=== PATIENT | male | born 1960 | race Caucasian/White ===

== ENCOUNTER → 2016-03-23 | Day surgery (SDC) | payer OTHER ==
[~2016-03-23] VITALS: Ht 177.8 cm; Wt 95.3 kg
--- NOTE | 2016-03-23 09:37 | Operative Report ---
Operative/Inv Procedure Report Surgery Date: 03/23/16 Name of Procedure: Bronchoscopy with bronchoalveolar lavage Pre-Operative Diagnosis: Left lung pulmonary infiltrates Post-Operative Diagnosis: Same Estimated Blood Loss: none Surgeon/Radiation / Chemistry Technician: Ronal Edwards MD Anesthesia: general endotracheal tube Operative/Procedure Note Note: After placement of monitoring lines and induction of general anesthesia fiberoptic bronchoscopy was performed through the endotracheal tube. The endobronchial anatomy was normal. There were no endobronchial lesions noted and no obstructions. The bronchoscope was then wedged into the first left upper lobe and then the left lower lobe. 20 mL of saline was passed and each wedge position and the return fluid was sent for cytology and further fluid analysis. The patient tolerated procedure well and the procedure continued as a mediastinoscopy. CC: NAVI PETERS,RONAL
--- NOTE | 2016-03-23 09:39 | Operative Report ---
Operative/Inv Procedure Report Surgery Date: 03/23/16 Name of Procedure: Mediastinoscopy Pre-Operative Diagnosis: Mediastinal lymphadenopathy Post-Operative Diagnosis: Same Estimated Blood Loss: scant Surgeon/Winter Intern: MARGARITO PETERS,LUISANA Fuentes JR Anesthesia: general endotracheal tube Operative/Procedure Note Note: The procedure continued after completion the bronchoscopy. The patient's neck and chest were prepped and draped in sterile fashion. A small incision was made above the sternal notch and carried down to pretracheal fascia. The posterior mediastinum was entered easily with blunt dissection and the mediastinoscope was introduced. Given the appearance of the tissues and a fair amount of mediastinal fat dissection was somewhat tedious but the pathological lymph nodes in the right paratracheal area were encountered directly. Needle aspiration showed nonvascular structure. Multiple specimens were taken and sent for permanent histology along with flow cytometry. Hemostasis was achieved with electrocautery and with some Surgicel packing that was left behind because of some bleeding from the biopsy lymph nodes. The wound was closed in layers with deep Vicryl suture followed by running Vicryl subcuticular suture. The patient tolerated the procedure well and was brought to recovery room awake and extubated in stable condition. CC: CLYDE MCELROY MD
--- NOTE | 2016-03-23 10:15 | RADIOLOGY REPORT ---
EXAMINATION: XR PORTABLE CHEST CLINICAL INFORMATION: Status post bronchoscopy COMPARISON: PET CT 03/13/2016 TECHNIQUE: Portable view of the chest was obtained. FINDINGS: Lung volumes are symmetric. No focal consolidation is seen. No evidence of pneumothorax, pleural effusion, or pulmonary edema. Cardiac size is within normal limits. Thickening of the right paratracheal stripe is in keeping with adenopathy as seen on recent PET/CT. No acute osseous findings are seen. IMPRESSION: No acute cardiopulmonary findings. Thickened right paratracheal stripe, in keeping with adenopathy seen on recent PET/CT.
== END ==
LOC: STS 01:50
DX: R59.9 Enlarged lymph nodes, unspecified (principal); R91.8 Other nonspecific abnormal finding of lung field; J44.9 Chronic obstructive pulmonary disease, unspecified; Z87.891 Personal history of nicotine dependence
CPT/HCPCS: 87070; 87075; 87205; 88184; 88261; 88305; 88307; 88331; C9399; J0131; J0690; J1100; J2250; J2405